=== PATIENT | female | born 1975 | race Caucasian/White ===

== ENCOUNTER 2017-09-23 21:40 | Emergency (ER) | payer OTHER ==
[2017-09-23 21:47] VITALS: TEMP 98.1; BMI 35.4
--- NOTE | 2017-09-23 21:56 | PDOC ---
History of Present Illness - General Chief Complaint: Nasal Bleeding Stated Complaint: HEAD PAIN,NOSEBLEEDING Time Seen by Provider: 09/23/17 21:55 Past History - Past Medical History Allergies/Adverse Reactions: Allergies Allergy/AdvReac Type Severity Reaction Status Date / Time No Known Allergies Allergy Verified 09/23/17 21:47 COPD: No HTN: Yes Thyroid Disease: Yes - Suicide/Smoking/Psychosocial Hx Smoking History: Never smoked Have you smoked in the past 12 months: No Information on smoking cessation initiated: No Hx Alcohol Use: No Drug/Substance Use Hx: No Substance Use Type: None Review of Systems - Review of Systems Comments:: 09/23/17 21:55 GENERAL/CONSTITUTIONAL: No fever or chills. No weakness. HEAD, EYES, EARS, NOSE AND THROAT: No change in vision. No ear pain or discharge. No sore throat.- CARDIOVASCULAR: No chest pain or shortness of breath RESPIRATORY: No cough, wheezing, or hemoptysis. GASTROINTESTINAL: No nausea, vomiting, diarrhea or constipation. GENITOURINARY: No dysuria, frequency, or change in urination. MUSCULOSKELETAL: No joint or muscle swelling or pain. No neck or back pain. SKIN: No rash NEUROLOGIC: No headache, vertigo, loss of consciousness, or change in strength/ sensation. ENDOCRINE: No increased thirst. No abnormal weight change HEMATOLOGIC/LYMPHATIC: No anemia, easy bleeding, or history of blood clots. ALLERGIC/IMMUNOLOGIC: No hives or skin allergy. *Physical Exam - Vital Signs Last Vital Signs Temp Pulse Resp BP Pulse Ox 98.1 F 72 18 150/90 99 09/23/17 21:45 09/23/17 21:45 09/23/17 21:45 09/23/17 21:45 09/23/17 21:45 - Physical Exam Comments: 09/23/17 21:56 GENERAL: Awake, alert, and fully oriented, in no acute distress HEAD: No signs of trauma, normocephalic, atraumatic EYES: PERRLA, EOMI, sclera anicteric, conjunctiva clear ENT: Auricles normal inspection, hearing grossly normal, nares patent, oropharynx clear without exudates. Moist mucosa NECK: Normal ROM, supple, no lymphadenopathy, JVD, or masses LUNGS: No distress, speaks full sentences, clear to auscultation bilaterally HEART: Regular rate and rhythm, normal S1 and S2, no murmurs, rubs or gallops, peripheral pulses normal and equal bilaterally. ABDOMEN: Soft, nontender, normoactive bowel sounds. No guarding, no rebound. No masses EXTREMITIES : Normal inspection, Normal range of motion, no edema. No clubbing or cyanosis. NEUROLOGICAL: Cranial nerves II through XII grossly intact. Normal speech, normal gait, no focal sensorimotor deficits SKIN: Warm, Dry, normal turgor, no rashes or lesions noted *DC/Admit/Observation/Transfer - Referrals - Patient Instructions Additional Instructions: Please return to the emergency department with any new or worsening symptoms or concerns. Please follow up with your primary care physician within 72 hours. - Post Discharge Activity - Attestations Physician Attestion: 09/23/17 21:56 I attest to the information provided in this note.
[2017-09-23] MEDS ORDERED: LOSARTAN POTASSIUM 25 MG TABLET ONE (22:16)
[2017-09-23] MEDS ORDERED: HYDROCHLOROTHIAZIDE 25 MG TABLET (FP) ONE (22:16)
[2017-09-23 22:45] LABS: BASO % 0.3 % (0-2.0); EOS % 1.2 % (0-4.5); HEMATOCRIT 34.6 % (32.4-45.2); LYMPH % 33.9 % (8-40); MCH 32.9 pg (25.7-33.7); MCHC 34.6 g/dl (32.0-36.0); MEAN PLT VOLUME 9.6 fl (7.5-11.1); MONO % 6.4 % (3.8-10.2); NEUT % 58.2 % (42.8-82.8); PLATELET COUNT 195 K/MM3 (134-434); RBC 3.65 M/mm3 (3.60-5.2); RDW 12.9 % (11.6-15.6); WHITE BLOOD COUNT 10.3 K/mm3 (4.0-10.0)
[2017-09-23] MEDS ORDERED: MORPHINE SULFATE 10 MG/1 ML *VIAL ONE (23:05)
[2017-09-23 23:07] LABS: INR 1.04 (0.82-1.09); PROTHROMBIN TIME (PATIENT) 11.8 SEC (9.98-11.88)
[2017-09-23 23:10] LABS: ALBUMIN 3.5 g/dl (3.4-5.0); ANION GAP 11 (8-16); BLOOD UREA NITROGEN 13 mg/dL (7-18); CALCIUM 8.8 mg/dL (8.5-10.1); CHLORIDE 109 mmol/L (98-107); CO2 24 mmol/L (21-32); CREATININE 1.1 mg/dL (0.55-1.02); GLUCOSE,RANDOM 115 mg/dL (74-106); POTASSIUM 3.7 mmol/L (3.5-5.1); SGOT/AST 11 U/L (15-37); SGPT/ALT 13 U/L (12-78); SODIUM 144 mmol/L (136-145)
[2017-09-23 23:11] LABS: ALK PHOS 63 U/L (45-117); BILIRUBIN,TOTAL 0.4 mg/dL (0.2-1.0)
--- NOTE | 2017-09-23 23:18 | PDOC ---
History of Present Illness - General History Source: Patient Exam Limitations: No Limitations - History of Present Illness Initial Comments: 09/23/17 23:21 The patient is a 42 year old female with a significant past medical history of HTN and hypothyroidism who presents to the ED with complaints of intermittent nasal bleeding for a week. The patient states she was sitting at home on Sunday when she had a sudden onset of 1 episode of nasal bleeding. Patient reports 3 episodes of nasal bleeding on Sunday, 1 episode on , 4 episodes on Sunday, 4 episodes on Sunday, and 4 episodes earlier today. Patient states she went to [facility] ED yesterday for present symptoms, labs were not obtained and was sent home on motrin. Patient also reports a slight headache earlier today associated with present symptoms. Patient is typically compliant with taking her medications but notes she did not take her medication earlier today. Denies fever or chills. Denies throat pain or ear pain. Denies nausea, vomiting , or diarrhea. Denies any other symptoms. <Eliu Ricci - Last Filed: 09/23/17 23:20> <Janessa Mathews - Last Filed: 09/24/17 02:55> - General Chief Complaint: Nasal Bleeding Stated Complaint: HEAD PAIN,NOSEBLEEDING Time Seen by Provider: 09/23/17 21:55 Past History <Eliu Ricci - Last Filed: 09/23/17 23:20> - Past Medical History COPD: No HTN: Yes Thyroid Disease: Yes - Suicide/Smoking/Psychosocial Hx Smoking History: Never smoked Have you smoked in the past 12 months: No Information on smoking cessation initiated: No Hx Alcohol Use: No Drug/Substance Use Hx: No Substance Use Type: None <Janessa Mathews - Last Filed: 09/24/17 02:55> - Past Medical History Allergies/Adverse Reactions: Allergies Allergy/AdvReac Type Severity Reaction Status Date / Time No Known Allergies Allergy Verified 09/23/17 21:47 Home Medications: Ambulatory Orders Levothyroxine [Synthroid -] 100 mcg PO DAILY 09/23/17 Losartan/Hydrochlorothiazide [Losartan-Hctz 50-12.5 mg Tab] 1 each PO DAILY 11/07 Clindamycin [Cleocin -] 300 mg PO Q6HPO #28 capsule 09/24/17 Clindamycin [Cleocin -] 300 mg PO Q6HPO #28 capsule 09/24/17 Review of Systems - Review of Systems Able to Perform ROS?: Yes Comments:: 09/23/17 23:22 CONSTITUTIONAL: Absent: fever, chills, diaphoresis, generalized weakness, malaise, loss of appetite HEENT: + nasal bleed, headache Absent: rhinorrhea, nasal congestion, throat pain, throat swelling, difficulty swallowing, mouth swelling, ear pain, eye pain, visual Changes CARDIOVASCULAR: Absent: chest pain, syncope, palpitations, irregular heart rate, lightheadedness , peripheral edema RESPIRATORY: Absent: cough, shortness of breath, dyspnea with exertion, orthopnea, wheezing, stridor, hemoptysis GASTROINTESTINAL: Absent: abdominal pain, abdominal distension, nausea, vomiting, diarrhea, constipation, melena, hematochezia GENITOURINARY: Absent: dysuria, frequency, urgency, hesitancy, hematuria, flank pain, genital pain MUSCULOSKELETAL: Absent: myalgia, arthralgia, joint swelling SKIN: Absent: rash, itching, pallor HEMATOLOGIC/IMMUNOLOGIC: Absent: easy bleeding, easy bruising, lymphadenopathy, frequent infections ENDOCRINE: Absent: unexplained weight gain, unexplained weight loss, heat intolerance, cold intolerance NEUROLOGIC: Absent: focal weakness or paresthesias, dizziness, unsteady gait, seizure, mental status changes, bladder or bowel incontinence PSYCHIATRIC: Absent: anxiety, depression, suicidal or homicidal ideation, hallucinations. All Other Systems: Reviewed and Negative <Eliu Ricci - Last Filed: 09/23/17 23:20> *Physical Exam - Vital Signs Last Vital Signs Temp Pulse Resp BP Pulse Ox 98.1 F 72 18 150/90 99 09/23/17 21:45 09/23/17 21:45 09/23/17 21:45 09/23/17 21:45 09/23/17 21:45 - Physical Exam Comments: 09/23/17 23:23 GENERAL: Well developed, well nourished. Awake and alert. No acute distress. HEENT: + exophthalmos eyes, bilateral brisk nose bleed, patient leaning forward and no blood going to the back of her throat. Normocephalic, atraumatic. PERRLA, EOMI. No conjunctival pallor. Sclera are non-icteric. Moist mucous membranes. Oropharynx is clear. NECK: Supple. Full ROM. No JVD. Carotid pulses 2+ and symmetric, without bruits. No thyromegaly. NCo lymphadenopathy. CARDIOVASCULAR: Regular rate and rhythm. No murmurs, rubs, or gallops. Distal pulses are 2+ and symmetric. PULMONARY: No evidence of respiratory distress. Lungs clear to auscultation bilaterally. No wheezing, rales or rhonchi. ABDOMINAL: Soft. Non-tender. Non-distended. No rebound or guarding. No organomegaly. Normoactive bowel sounds. MUSCULOSKELETAL Normal range of motion at all joints. No bony deformities or tenderness. No CVA tenderness. EXTREMITIES: No cyanosis. No clubbing. No edema. No calf tenderness. SKIN: Warm and dry. Normal capillary refill. No rashes. No jaundice. NEUROLOGICAL: Alert, awake, appropriate. Cranial nerves 2-12 intact. No deficits to light touch and temperature in face, upper extremities and lower extremities. No motor deficits in the in face, upper extremities and lower extremities. Normoreflexic in the upper and lower extremities. Normal speech. Toes are down- going bilaterally. Gait is normal without ataxia. PSYCHIATRIC: Cooperative. Good eye contact. Appropriate mood and affect. <Eliu Ricci - Last Filed: 09/23/17 23:20> - Vital Signs Last Vital Signs Temp Pulse Resp BP Pulse Ox 98.1 F 72 18 150/90 99 09/23/17 21:45 09/23/17 21:45 09/23/17 21:45 09/23/17 21:45 09/23/17 21:45 <Janessa Mathews - Last Filed: 09/24/17 02:55> ED Treatment Course - LABORATORY CBC & Chemistry Diagram: 09/23/17 22:30 09/23/17 22:30 - ADDITIONAL ORDERS Additional order review: Laboratory Results 09/23/17 09/23/17 22:30 22:30 PT with INR 11.80 INR 1.04 Sodium 144 Potassium 3.7 Chloride 109 H Carbon Dioxide 24 Anion Gap 11 BUN 13 Creatinine 1.1 H Creat Clearance w eGFR 53.96 Random Glucose 115 H Calcium 8.8 Total Bilirubin 0.4 AST 11 L ALT 13 Alkaline Phosphatase 63 Total Protein 7.0 Albumin 3.5 09/23/17 22:30 RBC 3.65 MCV 95.0 MCHC 34.6 RDW 12.9 MPV 9.6 Neutrophils % 58.2 Lymphocytes % 33.9 Monocytes % 6.4 Eosinophils % 1.2 Basophils % 0.3 - Medications Given in the ED: ED Medications Discontinued Medications Generic Name Dose Route Start Last Admin Trade Name Freq PRN Reason Stop Dose Admin Oxycodone/Acetaminophen 2 combo 09/23/17 22:31 09/23/17 23:03 Percocet 5/325 - PO 09/23/17 22:32 2 combo ONCE ONE Administration <Eliu Ricci - Last Filed: 09/23/17 23:20> - LABORATORY CBC & Chemistry Diagram: 09/23/17 22:30 09/23/17 22:30 - ADDITIONAL ORDERS Additional order review: Laboratory Results 09/23/17 09/23/17 22:30 22:30 PT with INR 11.80 INR 1.04 Sodium 144 Potassium 3.7 Chloride 109 H Carbon Dioxide 24 Anion Gap 11 BUN 13 Creatinine 1.1 H Creat Clearance w eGFR 53.96 Random Glucose 115 H Calcium 8.8 Total Bilirubin 0.4 AST 11 L ALT 13 Alkaline Phosphatase 63 Total Protein 7.0 Albumin 3.5 09/23/17 22:30 RBC 3.65 MCV 95.0 MCHC 34.6 RDW 12.9 MPV 9.6 Neutrophils % 58.2 Lymphocytes % 33.9 Monocytes % 6.4 Eosinophils % 1.2 Basophils % 0.3 - Medications Given in the ED: ED Medications Discontinued Medications Generic Name Dose Route Start Last Admin Trade Name Freq PRN Reason Stop Dose Admin Oxycodone/Acetaminophen 2 combo 09/23/17 22:31 09/23/17 23:03 Percocet 5/325 - PO 09/23/17 22:32 2 combo ONCE ONE Administration <Janessa Mathews - Last Filed: 09/24/17 02:55> Medical Decision Making - Medical Decision Making 09/23/17 23:25 Pt comes with brisk nosebleed. States that she is compliant with her meds and that she forgot to take her meds x 1 day, however given that she has a TSH of 8+ , it is clear that pt is noncompliant with her meds at home. Pt's BP is also 170-190 systolic .... States that she is having pain after the inflation of the rhino rocket in her right nare. 7.5 cm rhino rocket, inflated with 20cc air successfully tamped the bleeding. Pt was given her losartan and HCTZ and percocets for headache and HTN. Pt was thereafter given 2mg morphine for the pain related to the rhinorocket. Pt will follow with Dr. Roger for hypertensive urgency and elevated TSH and epistaxis tomorrow as [facility] has walk-in hours tomorrow. <Janessa Mathews - Last Filed: 09/24/17 02:55> *DC/Admit/Observation/Transfer - Attestations Scribe Attestion: 09/23/17 23:23 Documentation prepared by Eliu Ricci, acting as emergency medical service manager for Janessa Mathews MD <Eliu Ricci - Last Filed: 09/23/17 23:20> - Discharge Dispostion Admit: No <Janessa Mathews - Last Filed: 09/24/17 02:55> Diagnosis at time of Disposition: Epistaxis, recurrent, Hypothyroid - Discharge Dispostion Disposition: HOME Condition at time of disposition: Stable - Prescriptions Prescriptions: Clindamycin [Cleocin -] 300 mg PO Q6HPO #28 capsule Clindamycin [Cleocin -] 300 mg PO Q6HPO #28 capsule - Referrals Referrals: Papi Mae MD [Primary Care Provider] - - Patient Instructions Printed Discharge Instructions: DI for Nosebleed, DI for Hypothyroidism Additional Instructions: Please return to the emergency department with any new or worsening symptoms or concerns. Please follow up with your primary care physician within 72 hours. FOLLOW AT WALK-IN HOURS ALL DAY TOMORROW AT YOUR DOCTOR'S OFFICE PAPI MAE AND EVELINE ROGER - Post Discharge Activity
[2017-09-23] MEDS ORDERED: morphine CARPU-JECT 2 MG/1 ML DISP.SYRIN IVPUSH ONE (23:20)
[2017-09-24 00:18] LABS: COCAINE, UR NEGATIVE ng/ml (CUTOFF=300); METHADONE, UR NEGATIVE ng/ml (CUTOFF=300); OPIATES, URI NEGATIVE ng/ml (CUTOFF=300); PHENCYCLIDINE,URINE NEGATIVE ng/ml (CUTOFF=25); URINE AMPHETAMINES NEGATIVE ng/ml (CUTOFF=500); URINE BARBITURATES NEGATIVE ng/ml (CUTOFF=200); URINE BENZODIAZEPINES NEGATIVE ng/ml (CUTOFF=200)
[2017-09-24] MEDS ORDERED: LEVOTHYROXINE NA 100 MCG TABLET (FP) PO ONE (00:54)
[2017-09-24] MEDS ORDERED: LEVOTHYROXINE NA 25 MCG TABLET (FP) ONE (00:56)
[2017-09-24 01:35] VITALS: BP 179/93; PULSE 65
[2017-09-24] MEDS ORDERED: CLINDAMYCIN HCL 300 MG CAPSULE PO ONE (02:04)
[2017-09-24] MEDS ORDERED: CLINDAMYCIN HCL 150 MG CAPSULE (FP) ONE (02:07)
== END 2017-09-24 03:02 | disposition home or self-care (01) ==
LOC: JER 21:40
PROC: 2Y41X5Z Packing of Nasal Region using Packing Material (ICD-10-PCS; principal; 2017-09-23)
PROC: 3E033NZ Introduction of Analgesics, Hypnotics, Sedatives into Peripheral Vein, Percutaneous Approach (ICD-10-PCS; 2017-09-23)
PROC: 3E033GC Introduction of Other Therapeutic Substance into Peripheral Vein, Percutaneous Approach (ICD-10-PCS; 2017-09-23)
DX: R04.0 Epistaxis (principal); I10 Essential (primary) hypertension; E03.9 Hypothyroidism, unspecified
CPT/HCPCS: 36415; 80053; 80307; 82550; 84443; 84484; 84703; 85025; 85610; 85730; 99282-25